=== PATIENT | female | born 2000 | race African-American/Black ===

== ENCOUNTER 2022-05-17 15:13 | Emergency (ER) | payer SELFPAY ==
[~2022-05-17] VITALS: Ht 170.2 cm; Wt 85.0 kg
[2022-05-17 16:03] VITALS: BP 105/61
== END 2022-05-17 18:22 | disposition left against medical advice (07) ==
LOC: ER 15:13
DX: R10.13 Epigastric pain (principal); Z53.21 Procedure and treatment not carried out due to patient leaving prior to being seen by health care provider